=== PATIENT | male | born 1980 | race Caucasian/White ===

== ENCOUNTER 2016-11-21 19:32 | Emergency (ER) | payer SELFPAY ==
[2016-11-21 20:13] VITALS: BP 128/64
[2016-11-21] MEDS ORDERED: Albuterol/Ipratropium 3.0-0.5 MG/3 ML Neb Soln ONE (20:17)
[2016-11-21] MEDS ORDERED: Albuterol HFA 18 Gm Inhaler ONE (20:18)
--- NOTE | 2016-11-21 20:18 | EDM.PDOC ---
ED HPI ENT - General Chief Complaint: ENT Problem Stated Complaint: STREP?? Time Seen by Provider: 11/21/16 20:00 Source of Information: Reports: Patient History Limitations: Reports: No limitations - History of Present Illness INITIAL COMMENTS - FREE TEXT/NARRATIVE: 36 yo wm presents to ER complaining of cough, congestion, sore throat and shortness of breath x 3 weeks. Pt reports history of bronchitis in the past. Pt reports occasional tobacco use. Pt denies chest pain, fever/chills, or nausea/ vomiting. Timing/Duration: Reports: Week(s): (3) Severity: mild Location: Reports: right Ear, throat Quality: Reports: Ache Improves with: Reports: None Worsens with: Reports: None Associated Symptoms: Reports: cough, sputum. Denies: confusion, headaches, seizure, chest pain, fever/chills, nausea/vomiting, rash - Related Data Allergies/ADRs: Allergies Allergy/AdvReac Type Severity Reaction Status Date / Time No Known Drug Allergies Allergy Other Verified 11/21/16 20:11 Home Meds: Home Meds Azithromycin [Zithromax] 250 mg PO DAILY #6 tablet 11/21/16 [Rx] Cetirizine [ZyrTEC] 10 mg PO DAILY #30 tablet 11/21/16 [Rx] ED ROS ENT - Review of Systems Review Of Systems: See Below Constitutional: Reports: no symptoms HEENT: Reports: Ear pain, Throat pain Respiratory: Reports: Shortness of Breath Cardiovascular: Reports: No symptoms Endocrine: Reports: no symptoms GI/Abdominal: Reports: No symptoms : Reports: no symptoms Musculoskeletal: Reports: no symptoms Skin: Reports: no symptoms Neurological: Reports: No Symptoms Psychiatric: Reports: No symptoms Hematologic/Lymphatic: Reports: no symptoms Immunologic: Reports: no symptoms ED EXAM, ENT - Physical Exam Exam: See Below Exam Limited By: No limitations General Appearance: alert, WD/WN, no apparent distress Ears: TM dullness, TM erythema (right) Nose: nasal discharge Mouth/Throat: Pharyngeal erythema, Throat pain. No: Peritonsillar mass, Throat swelling, Tongue swelling, Tonsillar erythema, Tonsillar exudates, Tonsillar swelling, Uvular deviation Head: atraumatic, normocephalic Neck: normal inspection, supple, non-tender, full range of motion Respiratory/Chest: no respiratory distress, no accessory muscle use, chest non- tender, wheezing Cardiovascular: normal peripheral pulses, regular rate, rhythm, no edema, no gallop, no JVD, no murmur, no rub GI/Abdominal: normal bowel sounds, soft, non tender, no organomegaly, no distention, no abnormal bruit, no mass Back: normal inspection, full range of motion Extremities: normal inspection, normal range of motion, non-tender, no pedal edema, normal capillary refill Neurological: alert, oriented, CN II-XII intact, normal cognition, normal gait, normal reflexes, no motor/sensory deficits Psychiatric: normal affect, normal mood Skin: Warm, Dry, Intact, Normal color, No rash Course - Orders/Labs/Meds Orders: Active Orders 24 hr Category Date Time Status STREP SCRN A RAPID W CULT CONF [RM] Stat Lab 11/21/16 19:50 Received Labs: strep screen- neg Departure - Departure Time of Disposition: 20:26 Disposition: Home, Self-Care 01 Condition: good Clinical Impression: Bronchospasm Otitis media Qualifiers: Laterality: right Chronicity: acute Upper respiratory infection Qualifiers: URI type: unspecified viral URI Qualified Code(s): J06.9 - Acute upper respiratory infection, unspecified; B97.89 - Other viral agents as the cause of diseases classified elsewhere Prescriptions: Azithromycin [Zithromax] 250 mg PO DAILY #6 tablet Cetirizine [ZyrTEC] 10 mg PO DAILY #30 tablet Instructions: Bronchospasm, Adult, Otitis Media, Adult, [id number], Upper Respiratory Infection, Adult, [id number] Referrals: PCP,Not In Area [Primary Care Provider] - Janet Joe MD [Physician] - Forms: ED Department Discharge - My Orders Last 24 Hours: My Active Orders 11/21/16 19:50 STREP SCRN A RAPID W CULT CONF [RM] Stat - Assessment/Plan Last 24 Hours: My Active Orders 11/21/16 19:50 STREP SCRN A RAPID W CULT CONF [RM] Stat Assessment:: 1. bronchospasm 2. upper respiratory tract infection 3. right otitis media Plan: 1. z-greg 2. zyrtec 10mg po qd 3. albuterol MDI Q4 hours and PRN 4. return for worsening symptoms or failure to improve next 2-3 days
[2016-11-21] MEDS ORDERED: Albuterol HFA 18 Gm Inhaler INH ONE (20:26)
[2016-11-21] MEDS ORDERED: Albuterol/Ipratropium 3.0-0.5 MG/3 ML Neb Soln NEB ONE (20:26)
== END 2016-11-21 20:45 | disposition home or self-care (01) ==
LOC: MERGE 19:32 → KA.ED 19:32
DX: J98.01 Acute bronchospasm (principal); H66.91 Otitis media, unspecified, right ear; J06.9 Acute upper respiratory infection, unspecified; Z79.899 Other long term (current) drug therapy
CPT/HCPCS: 87081; 87430; 99283; A9270